=== PATIENT | male | born 1990 | race Caucasian/White ===

== ENCOUNTER 2018-07-20 19:32 | Emergency (ER) | payer SELFPAY ==
[~2018-07-20] VITALS: Ht 175.3 cm; Wt 61.2 kg
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
[2018-07-20] MEDS ORDERED: IBUPROFEN 600 MG (MOTRIN) TAB PO STA (20:43)
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
[2018-07-20 22:35] VITALS: BP 125/50
== END 2018-07-20 22:35 | disposition home or self-care (01) ==
LOC: ER FS 19:34
DX: S32.401A Unspecified fracture of right acetabulum, initial encounter for closed fracture (principal); S63.502A Unspecified sprain of left wrist, initial encounter; S00.03XA Contusion of scalp, initial encounter; V48.6XXA Car passenger injured in noncollision transport accident in traffic accident, initial encounter
CPT/HCPCS: 70450; 70486; 72125; 72192; 73110

== ENCOUNTER 2022-01-30 05:39 | Emergency (ER) | payer SELFPAY ==
[~2022-01-30] VITALS: Ht 175.2 cm; Wt 69.3 kg
[2022-01-30 05:42] VITALS: BP 125/62
[2022-01-30] MEDS ORDERED: ONDANSETRON 4 MG (ZOFRAN) ORAL DISSOLVE TAB PO STA (05:59)
[2022-01-30] MEDS ORDERED: HYDROcodone/APAP 5 MG/325 MG (LORTAB) TAB PO ONE (06:00)
--- NOTE | 2022-01-30 06:05 | ED Cough/URI ---
General Stated Complaint: CHEST PAIN Source: patient Exam Limitations: no limitations History of Present Illness Date Seen by Provider: Jan 30, 2022 Time Seen by Provider: 05:47 Initial Comments 31-year-old male with no pertinent past medical history coming in due to 1 week of cough, body aches, sore throat, and now chest pain associated with his cough. Went to another ER a couple days ago and had a negative COVID, flu, strep test at that time. Was started on antibiotics and steroids which he is taking. Symptoms have persisted and he is having a hard time sleeping due to the cough. Denies any prior history of DVT or PE, no lower extremity swelling or pain, no hemoptysis, no recent surgery, no recent long travel, no prior history of heart attack, and otherwise denying any other acute complaints. Allergies and Home Medications Allergies Coded Allergies: No Known Drug Allergies (Unverified , 07/20/18) Patient Home Medication List Home Medication List Reviewed: Yes Review of Systems Review of Systems Constitutional: No fever; malaise EENTM: hoarseness, nose congestion, throat pain; No throat swelling Respiratory: cough Cardiovascular: chest pain Gastrointestinal: diarrhea, nausea Genitourinary: no symptoms reported Musculoskeletal: no symptoms reported Skin: no symptoms reported Psychiatric/Neurological: No Symptoms Reported Hematologic/Lymphatic: No Symptoms Reported Immunological/Allergic: no symptoms reported All Other Systems Reviewed Negative Unless Noted: Yes Past Epcooyx-Nqjcfl-Techtg Hx Patient Social History Substance use?: No Seasonal Allergies Seasonal Allergies: No Past Medical History Surgeries: Yes Orthopedic Respiratory: No Cardiac: No Neurological: No Genitourinary: No Gastrointestinal: No Musculoskeletal: No Endocrine: No HEENT: No Cancer: No Psychosocial: No Integumentary: No Blood Disorders: No Physical Exam Capillary Refill : Height: 5'9.00" Weight: 135lbs. oz. 61.655087cn; BMI Method:Stated General Appearance: WD/WN, no apparent distress Eyes: Bilateral Eye Normal Inspection HEENT: PERRL/EOMI, normal ENT inspection, pharynx normal Neck: non-tender, full range of motion, supple, normal inspection Respiratory: chest non-tender, lungs clear, normal breath sounds, no respiratory distress, no accessory muscle use Cardiovascular: no edema, no murmur, tachycardia Gastrointestinal: normal bowel sounds, non tender, soft; No distended, No guarding, No rebound Extremities: normal range of motion, non-tender, normal inspection, no pedal edema, no calf tenderness, normal capillary refill Neurologic/Psychiatric: no motor/sensory deficits, alert, normal mood/affect Skin: normal color, warm/dry Lymphatic: no adenopathy Progress/Results/Core Measures Suspected Sepsis SIRS Temperature: Pulse: Respiratory Rate: Blood Pressure / Mean: Results/Orders My Orders Orders - MARIA EUGENIA SPEAR MD Ekg-Prn For Chest Pain Or Rhyt (01/30/22 05:45) Ekg Tracing (01/30/22 05:56) Chest 1 View Ap/Pa Only (01/30/22 05:56) Hydrocodone/Apap 5/325 Tablet (Lortab 5 (01/30/22 06:00) Vital Signs/I&O Capillary Refill : Progress Note : Progress Note 31-year-old male with above history coming in due to URI type symptoms. ABCs were intact and vitals were stable on presentation although he is mildly tachycardic. He was given hydrocodone both for the pain and for his cough. EKG with sinus tachycardia with no acute ischemic changes. Chest x-ray with no infection. He is already had viral testing performed. He is otherwise well- appearing and I believe stable for discharge with outpatient follow-up. He was sent home with strict return precautions. ECG Initial ECG Impression Date: Jan 30, 2022 Initial ECG Impression Time: 06:20 Initial ECG Rate: 109 Initial ECG Rhythm: S.Tach Comment Narrow QRS, normal axis, no significant ST changes or T wave abnormalities Diagnostic Imaging Diagonstic Imaging: Xray Plain Films/CT/US/NM/MRI: chest Comments X-ray chest ordered and interpreted by me showing no pneumothorax, normal cardiac silhouette, no infiltrate, no pleural effusion. Departure Impression Primary Impression: Cough Qualified Codes: R05.1 - Acute cough Additional Impressions: Sore throat (viral) Chest pain Qualified Codes: R07.82 - Intercostal pain Disposition: 01 HOME, SELF-CARE Condition: Stable Departure-Patient Inst. Decision time for Depature: 06:11 Referrals: [facility] [place] NO,LOCAL PHYSICIAN (PCP) Primary Care Physician Patient Instructions: Cough in Adults Add. Discharge Instructions: Buy some over the counter cough medicine at [facility] and start taking it. Continue the medicines they gave you at the other hospital. This is just going to take time to get better unfortunately. Work/School Note: Work Release Form Date Seen in the Emergency Department: Jan 30, 2022 Return to Work: Feb 01, 2022 Restrictions: Return-No Fever (24hrs), Return-No Vomiting(24hrs) MARIA EUGENIA SPEAR MD Jan 30, 2022 06:05
--- NOTE | 2022-01-30 06:21 | Diagnostic Imaging Report ---
EXAM: CHEST 1 VIEW AP/PA ONLY INDICATION: Shortness of breath. Cough. COMPARISON: None. FINDINGS: Normal heart size and central pulmonary vascularity. Lungs are clear. No pleural effusion or pneumothorax. No acute osseous findings. IMPRESSION: No acute cardiopulmonary findings. Dictated by: Dictated on workstation # [id number]
== END 2022-01-30 06:15 | disposition home or self-care (01) ==
LOC: EDUNIT# 05:39 → ER FS 05:48
DX: J02.8 Acute pharyngitis due to other specified organisms (principal); R07.9 Chest pain, unspecified; R00.0 Tachycardia, unspecified; Z28.310 Unvaccinated for COVID-19
CPT/HCPCS: 71045; 93005